=== PATIENT | female | born 1980 | race Caucasian/White ===

== ENCOUNTER 2021-03-19 09:17 | Emergency (ER) | payer MEDICARE, MEDICAID ==
[~2021-03-19] VITALS: Ht 160 cm; Wt 91.0 kg
[2021-03-19] MEDS ORDERED: MOTRIN800 MG PO (11:34)
[2021-03-19 11:50] VITALS: BP 120/74
== END 2021-03-19 11:55 | disposition home or self-care (01) ==
LOC: ED 09:17
DX: S20.212A Contusion of left front wall of thorax, initial encounter (principal); S63.501A Unspecified sprain of right wrist, initial encounter; S53.401A Unspecified sprain of right elbow, initial encounter; W11.XXXA Fall on and from ladder, initial encounter; F17.200 Nicotine dependence, unspecified, uncomplicated

== ENCOUNTER 2021-06-07 14:48 | Emergency (ER) | payer MEDICARE, MEDICAID ==
[~2021-06-07 14:48] MED LIST: MOTRIN800 MG PO
[2021-06-07] MEDS ORDERED: AMOXICILLIN875 MG PO (15:24)
[2021-06-07] MEDS ORDERED: FLOXIN OTIC0.3 % AS (15:24)
[2021-06-07 15:25] VITALS: BP 129/80
== END 2021-06-07 15:25 | disposition home or self-care (01) ==
LOC: ED 14:48
DX: H66.92 Otitis media, unspecified, left ear (principal); H60.92 Unspecified otitis externa, left ear

== ENCOUNTER 2021-10-14 11:09 | Emergency (ER) | payer MEDICARE, MEDICAID ==
[~2021-10-14] VITALS: Ht 157.5 cm; Wt 81.8 kg
[~2021-10-14 11:09] MED LIST changes: +AMOXICILLIN875 MG PO; +FLOXIN OTIC0.3 % AS
[2021-10-14] MEDS ORDERED: FLUOXETINE10 M2 PO (11:30)
[2021-10-14] MEDS ORDERED: OMEPRAZOLE10 MG PO (11:31)
[2021-10-14] MEDS ORDERED: BUSPIRONE5 MG PO (11:31)
[2021-10-14] MEDS ORDERED: CETIRIZINE10 MG PO (11:31)
[2021-10-14] MEDS ORDERED: LORAZEPAM0.5 MG PO (11:32)
[2021-10-14 11:49] LABS: HEMATOCRIT 36.2 % (37.0-47.0); HEMOGLOBIN 11.8 g/dl (12.0-16.0); IMMATURE GRANULOCYTES 0.2 % (0.0-5.0); MEAN CELL VOLUME 87.7 fL CALC (80.0-100.0); MEAN CORPUSCULAR HGB 28.6 pG CALC (26.0-32.0); MEAN CORPUSCULAR HGB CONC 32.6 g/dL CAL (32.0-36.0); NEUT# 6.24 thou/uL (2.00-7.15); RED BLOOD COUNT 4.13 mill/uL (4.20-5.60); RED CELL DISTRI WIDTH 14.8 % (11.5-15.5)
[2021-10-14 11:57] LABS: HCG SERUM/URINE (NEG/POS) NEGATIVE (NEGATIVE)
[2021-10-14 12:03] LABS: ALBUMIN 3.9 g/dL (3.2-5.0); ALKALINE PHOSPHATASE 81 u/l (38-126); ANION GAP 14 (6-22 (CALC)); BILIRUBIN, TOTAL 0.4 mg/dL (0.0-1.4); BUN 5 mg/dL (7-17); BUN/CREATININE RATIO 6 (12-20 (CALC)); CARBON DIOXIDE 22 mmol/l (22-30); CHLORIDE 103 mmol/l (95-108); CREATININE 0.9 mg/dL (0.5-1.0); GFR > 60 ML/MIN (>=60 (CALC)); GFR FOR AFR.AMER. > 60 ML/MIN (>=60 (CALC)); POTASSIUM 3.6 mmol/l (3.5-5.1); SGOT/AST 25 u/l (14-36); SODIUM 136 mmol/l (137-146); TOTAL PROTEIN 7.3 g/dL (6.3-8.2)
[2021-10-14] MEDS ORDERED: ZPAK PO (13:20)
[2021-10-14] MEDS ORDERED: PROAIR HFA108 MCG/AC PO (13:20)
[2021-10-14] MEDS ORDERED: PREDNISONE50 MG PO (13:20)
[2021-10-14 13:45] VITALS: BP 107/59
== END 2021-10-14 13:45 | disposition home or self-care (01) ==
LOC: ED 11:09
PROVIDERS: Family Medicine
DX: J06.9 Acute upper respiratory infection, unspecified (principal); G40.909 Epilepsy, unspecified, not intractable, without status epilepticus; F32.A Depression, unspecified; F17.210 Nicotine dependence, cigarettes, uncomplicated; Z20.822 Contact with and (suspected) exposure to COVID-19

== ENCOUNTER 2021-12-21 09:22 | Emergency (ER) | payer MEDICARE, MEDICAID ==
[~2021-12-21] VITALS: Ht 157.5 cm; Wt 93.4 kg
[~2021-12-21 09:22] MED LIST changes: +BUSPIRONE5 MG PO; +CETIRIZINE10 MG PO; +FLUOXETINE10 M2 PO; +LORAZEPAM0.5 MG PO; +OMEPRAZOLE10 MG PO; +PREDNISONE50 MG PO; +PROAIR HFA108 MCG/AC PO; +ZPAK PO
[2021-12-21] MEDS ORDERED: LEXAPRO10 MG PO (09:37)
[2021-12-21 10:44] LABS: HEMATOCRIT 38.1 % (37.0-47.0); HEMOGLOBIN 12.2 g/dl (12.0-16.0); IMMATURE GRANULOCYTES 0.4 % (0.0-5.0); MEAN CELL VOLUME 90.1 fL CALC (80.0-100.0); MEAN CORPUSCULAR HGB 28.8 pG CALC (26.0-32.0); NEUT# 5.98 thou/uL (2.00-7.15); RED BLOOD COUNT 4.23 mill/uL (4.20-5.60); RED CELL DISTRI WIDTH 15.1 % (11.5-15.5)
[2021-12-21 10:46] LABS: ALBUMIN 4.1 g/dL (3.2-5.0); ALKALINE PHOSPHATASE 77 u/l (38-126); ANION GAP 14 (6-22 (CALC)); BUN 8 mg/dL (7-17); BUN/CREATININE RATIO 11 (12-20 (CALC)); CARBON DIOXIDE 21 mmol/l (22-30); CHLORIDE 106 mmol/l (95-108); CREATININE 0.8 mg/dL (0.5-1.0); GFR > 60 ML/MIN (>=60 (CALC)); GFR FOR AFR.AMER. > 60 ML/MIN (>=60 (CALC)); LIPASE 132 u/l (23-300); POTASSIUM 4.3 mmol/l (3.5-5.1); SGOT/AST 32 u/l (14-36); SODIUM 136 mmol/l (137-146); TOTAL PROTEIN 7.5 g/dL (6.3-8.2)
[2021-12-21 11:00] LABS: BILIRUBIN, TOTAL 0.2 mg/dL (0.0-1.4)
[2021-12-21 12:36] LABS: URINE BILIRUBIN - DIPSTICK NEGATIVE (NEGATIVE); URINE BLOOD DIPSTICK NEGATIVE (NEGATIVE); URINE COLOR YELLOW; URINE GLUCOSE - DIPSTICK NEGATIVE (NEGATIVE); URINE KETONE NEGATIVE (NEGATIVE); URINE LEUK ESTERASE NEGATIVE (NEGATIVE); URINE PH 6.5 (4.5-8.0); URINE PROTEIN - DIPSTICK NEGATIVE (NEG-TRACE); URINE UROBILINOGEN - DIPSTICK 0.2 E.U./dL (0.2)
[2021-12-21 12:37] LABS: URINE NITRITE - DIPSTICK NEGATIVE (Negative)
[2021-12-21 14:50] VITALS: BP 118/87
== END 2021-12-21 15:01 | disposition home or self-care (01) ==
LOC: ED 09:22
PROVIDERS: Family Medicine
DX: R10.11 Right upper quadrant pain (principal); R10.31 Right lower quadrant pain; G40.909 Epilepsy, unspecified, not intractable, without status epilepticus; F32.A Depression, unspecified; F17.200 Nicotine dependence, unspecified, uncomplicated; Z20.822 Contact with and (suspected) exposure to COVID-19
CPT/HCPCS: Q9967

== ENCOUNTER 2022-05-03 11:51 | Emergency (ER) | payer OTHER, MEDICARE, MEDICAID ==
[~2022-05-03] VITALS: Ht 157.5 cm; Wt 78.0 kg
[~2022-05-03 11:51] MED LIST changes: +LEXAPRO10 MG PO
[2022-05-03 11:56] VITALS: BP 127/79
[2022-05-03 12:00] VITALS: BP 116/79
[2022-05-03 12:31] VITALS: BP 112/72
[2022-05-03] MEDS ORDERED: FLEXERIL5 M1 PO (13:45)
[2022-05-03 13:51] VITALS: BP 112/72
== END 2022-05-03 13:55 | disposition home or self-care (01) | DRG 552 ==
LOC: ED 11:51
DX: M54.6 Pain in thoracic spine (principal); M54.50 Low back pain, unspecified; F32.A Depression, unspecified; G40.909 Epilepsy, unspecified, not intractable, without status epilepticus; F17.210 Nicotine dependence, cigarettes, uncomplicated; V49.40XA Driver injured in collision with unspecified motor vehicles in traffic accident, initial encounter

== ENCOUNTER 2022-09-01 12:16 | Emergency (ER) | payer MEDICARE, MEDICAID ==
[~2022-09-01] VITALS: Ht 157.5 cm; Wt 77.0 kg
[~2022-09-01 12:16] MED LIST changes: +FLEXERIL5 M1 PO
[2022-09-01] MEDS ORDERED: NAPROXEN500 MG PO (15:00)
[2022-09-01 15:21] VITALS: BP 130/94
== END 2022-09-01 15:28 | disposition home or self-care (01) ==
LOC: ED 12:16
DX: S63.601A Unspecified sprain of right thumb, initial encounter (principal); F32.A Depression, unspecified; G40.909 Epilepsy, unspecified, not intractable, without status epilepticus; F17.210 Nicotine dependence, cigarettes, uncomplicated; X50.0XXA Overexertion from strenuous movement or load, initial encounter; Y92.838 Other recreation area as the place of occurrence of the external cause